=== PATIENT | female | born 1975 | race Caucasian/White ===

== ENCOUNTER → 2016-09-22 | Outpatient (CLI) | payer OTHER ==
[~2016-09-22] MED LIST: AMITIZA 8MCG8 MCG PO; AMOXICILLIN 8751 TAB PO; BENADRYL50 MG PO; CELEBREX 200MG200 MG PO; CYMBALTA 60MG60 MG PO; FLEXERIL 1010 MG/TAB PO; LOESTRIN 21 1.51 TAB PO; LYRICA 150MG C150 MG PO; MOTRIN 800800 MG/TAB PO; NASONEX SPRAY17 GM NS; NEURONTIN100 MG/CAP PO; NEURONTIN300 MG/CAP PO; NORCO 325 MG-101 TAB PO; NORCO 325 MG-51 TAB PO; PREDNISONE20 MG PO; PRENATAL PLUS PO; PRENATAL1 TA1 PO; SPRINTEC 35 MCG1 TAB PO; STOOL SOFTENER100 M2 PO; VITAMIN D 400400 IU PO; VOLTAREN GEL 1%1 TU TP; ZANAFLEX 4MG TAB4 MG PO; ZYRTEC 10MG10 MG PO
== END ==
LOC: COL.RAD 10:00
DX: R19.4 Change in bowel habit (principal)

== ENCOUNTER → 2016-09-27 | Outpatient (CLI) | payer OTHER | LOC: COL.RAD 13:00 | DX: R19.4 Change in bowel habit (principal) ==

== ENCOUNTER 2017-03-30 14:39 | Emergency (ER) | payer OTHER ==
[~2017-03-30] VITALS: Ht 154.9 cm; Wt 76.4 kg
[~2017-03-30 14:39] MED LIST changes: -AMITIZA 8MCG8 MCG PO; -NASONEX SPRAY17 GM NS; -NEURONTIN100 MG/CAP PO; -NORCO 325 MG-101 TAB PO; -PREDNISONE20 MG PO; -PRENATAL PLUS PO; -SPRINTEC 35 MCG1 TAB PO; -VOLTAREN GEL 1%1 TU TP; -ZANAFLEX 4MG TAB4 MG PO
[2017-03-30 14:41] VITALS: BP 125/73; PULSE 78; TEMP 98.8
[2017-03-30] MEDS ORDERED: AMITIZA 8MCG8 MCG PO (15:03)
[2017-03-30] MEDS ORDERED: PRENATAL PLUS PO (15:04)
[2017-03-30] MEDS ORDERED: ZANAFLEX 4MG TAB4 MG PO (15:04)
[2017-03-30] MEDS ORDERED: ZYRTEC 10MG10 MG PO (15:04)
[2017-03-30] MEDS ORDERED: NORCO 325 MG-101 TAB PO (15:05)
[2017-03-30] MEDS ORDERED: VOLTAREN GEL 1%1 TU TP (15:05)
[2017-03-30] MEDS ORDERED: PREDNISONE20 MG PO (15:34)
== END 2017-03-30 16:52 | disposition home or self-care (01) ==
LOC: COL.ER 14:39
DX: M54.5 Low back pain (principal); G89.29 Other chronic pain; M54.16 Radiculopathy, lumbar region; M54.2 Cervicalgia; Z98.1 Arthrodesis status
CPT/HCPCS: J2360; J3010; J7512

== ENCOUNTER 2017-04-19 08:56 | Emergency (ER) | payer OTHER ==
[~2017-04-19] VITALS: Ht 154.9 cm; Wt 76.4 kg
[~2017-04-19 08:56] MED LIST changes: +AMITIZA 8MCG8 MCG PO; +NORCO 325 MG-101 TAB PO; +PREDNISONE20 MG PO; +PRENATAL PLUS PO; +VOLTAREN GEL 1%1 TU TP; +ZANAFLEX 4MG TAB4 MG PO
[2017-04-19 09:00] VITALS: TEMP 99.8
[2017-04-19] MEDS ORDERED: NASONEX SPRAY17 GM NS (09:15)
[2017-04-19] MEDS ORDERED: NEURONTIN100 MG/CAP PO (09:15)
[2017-04-19 10:00] LABS: BASO % 0.7 % (0.0-2.0); EOS # 0.1 (0.0-0.7); EOS % 1.7 % (0-4.0); GRAN # 3.3 (1.4-6.5); GRAN % 56.1 % (42.2-75.2); HEMATOCRIT 40.3 % (37.0-47.0); HEMOGLOBIN 13.6 g/dl (12.5-16.0); LYMPH # 1.9 (1.2-3.4); LYMPH % 31.7 % (20.0-51.0); MEAN CELL VOLUME 93 fl (80.0-100.0); MEAN CORPUSCULAR HEMOGLOBIN 31 pg (27.0-31.0); MEAN CORPUSCULAR HGB CONC 34 g/dl (33.0-37.0); MEAN PLATELET VOLUME 9.7 fl (7.4-10.4); MONO # 0.6 (0.1-0.6); MONO % 9.6 % (1.7-9.3); PLATELET COUNT 236 K/mm3 (130-400); RED BLOOD COUNT 4.34 M/mm3 (4.10-5.30); REDCELL DISTRIBUTION WIDTH-CV 12.3 % (11.5-14.5); WHITE BLOOD COUNT 5.9 K/mm3 (4.8-10.8)
[2017-04-19 10:20] LABS: CALCIUM 9.4 mg/dL (8.4-10.2); CREATININE, serum 0.68 mg/dL (0.52-1.25); POTASSIUM 4.3 mmol/L (3.4-5.0)
[2017-04-19] MEDS ORDERED: SPRINTEC 35 MCG1 TAB PO (10:32)
[2017-04-19 11:44] LABS: CHLAMYDIA/TRACH by PCR Female NOT DETECTED; NEISSERIA GON by PCR Female NOT DETECTED
[2017-04-19 11:47] VITALS: BP 123/86; PULSE 94
== END 2017-04-19 11:50 | disposition home or self-care (01) ==
LOC: COL.ER 08:56
PROVIDERS: Physician Assistant
DX: N92.0 Excessive and frequent menstruation with regular cycle (principal); F41.9 Anxiety disorder, unspecified; Z98.890 Other specified postprocedural states; Z98.1 Arthrodesis status; Z86.73 Personal history of transient ischemic attack (TIA), and cerebral infarction without residual deficits; Z87.42 Personal history of other diseases of the female genital tract
CPT/HCPCS: J7030

== ENCOUNTER → 2017-05-09 | Outpatient (CLI) | payer OTHER ==
[~2017-05-09] MED LIST changes: +NASONEX SPRAY17 GM NS; +NEURONTIN100 MG/CAP PO; +SPRINTEC 35 MCG1 TAB PO
== END ==
LOC: COL.RAD 09:56
DX: D25.9 Leiomyoma of uterus, unspecified (principal); N83.02 Follicular cyst of left ovary; N83.01 Follicular cyst of right ovary; N85.4 Malposition of uterus; N92.6 Irregular menstruation, unspecified